=== PATIENT | female | born 1930 | race Caucasian/White ===

== ENCOUNTER → 2016-08-24 | Outpatient (REF) | payer MEDICARE, OTHER ==
[2016-08-24 12:17] LABS: CALCIUM LEVEL 9.2 MG/DL (8.8-10.2)
== END ==
LOC: M LABDRAW1 11:52
PROVIDERS: ATTEND Internal Medicine Endocrinology, Diabetes & Metabolism
DX: M81.0 Age-related osteoporosis without current pathological fracture (principal); E55.9 Vitamin D deficiency, unspecified

== ENCOUNTER → 2016-11-06 | Outpatient (REF) | payer MEDICARE, OTHER | LOC: M LABDRAW1 11:23 | PROVIDERS: ATTEND Internal Medicine Endocrinology, Diabetes & Metabolism | DX: M81.0 Age-related osteoporosis without current pathological fracture (principal) ==

== ENCOUNTER → 2017-05-07 | Outpatient (REF) | payer MEDICARE, OTHER | LOC: M LABDRAW1 09:50 | PROVIDERS: ATTEND Internal Medicine Endocrinology, Diabetes & Metabolism | DX: M81.0 Age-related osteoporosis without current pathological fracture (principal) ==

== ENCOUNTER → 2017-11-08 | Outpatient (REF) | payer MEDICARE, OTHER ==
[2017-11-08 13:36] LABS: CALCIUM LEVEL 9.4 MG/DL (8.8-10.2)
[2017-11-08 13:45] LABS: TOTAL 25(OH) VITAMIN D 57.1 NG/ML (30.0-100.0)
== END ==
LOC: M LABDRAW1 12:38
DX: M81.0 Age-related osteoporosis without current pathological fracture (principal); E55.9 Vitamin D deficiency, unspecified
CPT/HCPCS: 82310

== ENCOUNTER → 2018-05-15 | Outpatient (REF) | payer MEDICARE, OTHER ==
[2018-05-15 12:01] LABS: CALCIUM LEVEL 8.9 MG/DL (8.8-10.2)
== END ==
LOC: M LABDRAW1 09:03
DX: M81.0 Age-related osteoporosis without current pathological fracture (principal)
CPT/HCPCS: 82310

== ENCOUNTER → 2019-05-22 | Outpatient (REF) | payer MEDICARE, OTHER | LOC: M LABDRAW1 08:06 | PROVIDERS: ATTEND Internal Medicine Endocrinology, Diabetes & Metabolism | DX: M81.0 Age-related osteoporosis without current pathological fracture (principal) ==

== ENCOUNTER → 2019-12-08 | Outpatient (CLI) | payer MEDICARE, OTHER ==
[2019-12-08 14:52] LABS: CALCIUM LEVEL 9.2 MG/DL (8.8-10.2); TOTAL 25(OH) VITAMIN D 54.6 NG/ML (30.0-100.0)
== END ==
LOC: M PLALAB 10:47
PROVIDERS: ATTEND Internal Medicine Endocrinology, Diabetes & Metabolism
DX: M81.0 Age-related osteoporosis without current pathological fracture (principal); E55.9 Vitamin D deficiency, unspecified

== ENCOUNTER 2020-05-13 10:41 | Emergency (ER) | payer MEDICARE, OTHER ==
[~2020-05-13] VITALS: Ht 154.9 cm; Wt 72.0 kg
--- NOTE | 2020-05-13 12:00 | REP ---
INDICATION: injury to head r/o bleed or fx. COMPARISON: Comparison head CT study July 14, 2019.. TECHNIQUE: Helical scanning is acquired. 5 mm axial images were reformatted. Coronal MPR images were generated. 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 Bone window settings show an intact bony calvarium. No skull fracture is seen. Visualized paranasal sinuses are clear. There is a small quantity of fluid in the right maxillary sinus and 1 opacified ethmoid cells air cells seen on the left. No intraorbital abnormality is seen. On soft tissue window settings, there is minimal generalized volume loss and mild small vessel changes. There is no evidence of intracranial hemorrhage. No extra-axial fluid collection is seen. No mass, infarct, or midline shift is observed. No significant change from comparison study IMPRESSION: No acute intracranial injury. No skull fracture seen. Vascular calcification, generalized volume loss, and mild small vessel changes are again noted. <Electronically signed by Aneesh Milton > 05/13/20 [id number]
[2020-05-13] MEDS ORDERED: BISO5TAB2 (12:12)
[2020-05-13] MEDS ORDERED: LOSA50TA88 (12:12)
[2020-05-13] MEDS ORDERED: FERR325T18 (12:12)
[2020-05-13] MEDS ORDERED: NYST1POW9 (12:12)
[2020-05-13] MEDS ORDERED: LEVO50TA5 (12:12)
[2020-05-13] MEDS ORDERED: DERMABOND TOPICAL SKIN ADHESIVE TOP ONE (12:15)
[2020-05-13 12:17] VITALS: BP 137/69
== END 2020-05-13 12:58 | disposition home or self-care (01) ==
LOC: M ED 10:41
DX: S01.01XA Laceration without foreign body of scalp, initial encounter (principal); W22.8XXA Striking against or struck by other objects, initial encounter; Y92.018 Other place in single-family (private) house as the place of occurrence of the external cause; I10 Essential (primary) hypertension; E03.9 Hypothyroidism, unspecified; E78.5 Hyperlipidemia, unspecified; Z79.899 Other long term (current) drug therapy

== ENCOUNTER → 2020-06-11 | Outpatient (CLI) | payer MEDICARE, OTHER ==
[~2020-06-11] MED LIST: BISO5TAB2; FERR325T18; LEVO50TA5; LOSA50TA88; NYST1POW9
== END ==
LOC: M PLALAB 13:50
PROVIDERS: ATTEND Internal Medicine Endocrinology, Diabetes & Metabolism
DX: M81.0 Age-related osteoporosis without current pathological fracture (principal)

== ENCOUNTER → 2020-12-09 | Outpatient (CLI) | payer MEDICARE, OTHER ==
[2020-12-09 13:52] LABS: CALCIUM LEVEL 9.6 MG/DL (8.8-10.2)
[2020-12-09 14:08] LABS: TOTAL 25(OH) VITAMIN D 73.9 NG/ML (30.0-100.0)
== END ==
LOC: M PLALAB 10:04
PROVIDERS: ATTEND Nurse Practitioner Family
DX: E55.9 Vitamin D deficiency, unspecified (principal); M81.0 Age-related osteoporosis without current pathological fracture

== ENCOUNTER → 2021-06-13 | Outpatient (CLI) | payer MEDICARE, OTHER ==
[~2021-06-13] MED LIST changes: +BISO1TAB18; -BISO5TAB2; +LOSA50TA28; -LOSA50TA88
== END ==
LOC: M PLALAB 13:45
PROVIDERS: ATTEND Internal Medicine Endocrinology, Diabetes & Metabolism
DX: M81.0 Age-related osteoporosis without current pathological fracture (principal)

== ENCOUNTER → 2021-12-12 | Outpatient (CLI) | payer MEDICARE, OTHER ==
[2021-12-12 15:44] LABS: CALCIUM LEVEL 9.6 MG/DL (8.8-10.2); TOTAL 25(OH) VITAMIN D 79.2 NG/ML (30.0-100.0)
== END ==
LOC: M PLALAB 10:20
PROVIDERS: ATTEND Internal Medicine Endocrinology, Diabetes & Metabolism
DX: M81.0 Age-related osteoporosis without current pathological fracture (principal); E55.9 Vitamin D deficiency, unspecified

== ENCOUNTER → 2022-02-21 | Outpatient (CLI) | payer MEDICARE, OTHER | LOC: M WUC 11:09 | PROVIDERS: ATTEND Family Medicine | DX: M17.12 Unilateral primary osteoarthritis, left knee (principal) ==

== ENCOUNTER 2022-05-15 22:30 | Emergency (ER) | payer MEDICARE, OTHER ==
[~2022-05-15] VITALS: Ht 154.9 cm; Wt 66.8 kg
[2022-05-15 22:33] VITALS: BP 192/98
[2022-05-16] MEDS ORDERED: LIDOCAINE W/EPINEPHRINE 1% 20ML VIAL SC ONE (01:25)
[2022-05-16] MEDS ORDERED: BOOSTRIX/ADACEL VACCINE (DIPHTH/PERTUSS/ACELL/TETANUS) 0.5ML SYR IM ONE (02:00)
== END 2022-05-16 02:23 | disposition home or self-care (01) ==
LOC: M ED 22:30
DX: S01.81XA Laceration without foreign body of other part of head, initial encounter (principal); W18.30XA Fall on same level, unspecified, initial encounter; Y92.099 Unspecified place in other non-institutional residence as the place of occurrence of the external cause; E03.9 Hypothyroidism, unspecified; Z96.642 Presence of left artificial hip joint; Z79.890 Hormone replacement therapy; Z79.899 Other long term (current) drug therapy

== ENCOUNTER → 2022-06-08 | Outpatient (CLI) | payer MEDICARE, OTHER | LOC: M PLALAB 10:47 | PROVIDERS: ATTEND Internal Medicine Endocrinology, Diabetes & Metabolism | DX: M48.54XS Collapsed vertebra, not elsewhere classified, thoracic region, sequela of fracture (principal) ==